=== PATIENT | male | born 1955 ===

== ENCOUNTER 2020-04-21 16:12 | Observation (INO) | payer SELFPAY ==
[~2020-04-21] VITALS: Ht 185.4 cm; Wt 74.0 kg
[~2020-04-21 16:12] MED LIST changes: -CALCITONIN SAL; -Norco 5-325 Ta1 EACH PO
[2020-04-21 18:32] LABS: BASOPHILS ABSOLUTE AUTO 0.02 K/mm3 (0.00-0.23); BASOPHILS PERCENT AUTO 0 % (0-2); EOSINOPHILS ABSOLUTE AUTO 0.03 K/mm3 (0.00-0.68); EOSINOPHILS PERCENT AUTO 0 % (0-6); Hematocrit 44.5 % (37.0-53.0); Hemoglobin 14.1 g/dL (13.5-17.5); IMMATURE GRAN ABSOLUTE AUTO 0.04 K/mm3 (0.00-0.10); IMMATURE GRAN PERCENT AUTO 0 % (0-1); LYMPHOCYTES ABSOLUTE AUTO 1.02 K/mm3 (0.84-5.20); LYMPHOCYTES PERCENT AUTO 11 % (21-46); MONOCYTES ABSOLUTE AUTO 0.46 K/mm3 (0.16-1.47); MONOCYTES PERCENT AUTO 5 % (4-13); Mean Corpuscular HGB 29.9 pg (26.0-34.0); Mean Corpuscular HGB Conc 31.7 g/dL (31.5-36.5); Mean Corpuscular Volume 95 fL (80-100); Mean Platelet Volume 8.6 fL (9.1-12.4); NEUTROPHILS ABSOLUTE AUTO 7.42 K/mm3 (1.96-9.15); NEUTROPHILS PERCENT AUTO 83 % (41-73); Platelet Count 326 K/mm3 (150-400); RDW Standard Deviation 45.6 fL (35.1-46.3); Red Blood Cell Count 4.71 M/mm3 (4.30-5.90); White Blood Cell Count 8.99 K/mm3 (4.00-11.30)
[2020-04-21 18:57] LABS: Magnesium, Blood 2.1 mg/dL (1.6-2.4)
[2020-04-21 19:00] LABS: Alanine Aminotransfer (ALT/SGP 27 U/L (12-78); Albumin, Blood 3.9 g/dL (3.4-5.0); Albumin/Globulin Ratio 1.1 (0.8-1.8); Alk Phos 143 U/L (50-136); Anion Gap 2 mmol/L (6-16); Aspartate Aminotrans (AST/SGOT 28 U/L (12-37); Bilirubin, Total 0.6 mg/dL (0.1-1.0); Blood Urea Nitrogen 11 mg/dL (8-24); Bun/Creatinine Ratio 14.6 (12.0-20.0); CO2, Blood 31 mmol/L (21-32); Calcium, Blood 13.6 mg/dL (8.5-10.1); Chloride, Blood 103 mmol/L (98-108); Creatinine, Blood 0.75 mg/dL (0.60-1.20); Globulin, Blood 3.6 g/dL (2.2-4.0); Glomerular Filtration Rate >60 (60-); Glucose, Blood 101 mg/dL (70-99); Phosphorus, Blood 2.6 mg/dL (2.5-4.9); Potassium, Blood 4.8 mmol/L (3.5-5.5); Sodium, Blood 136 mmol/L (136-145); Total Protein, Blood 7.5 g/dL (6.4-8.2)
[2020-04-21 19:05] LABS: CPK Creatine Kinase 59 U/L (39-308); Uric Acid, Blood 6.1 mg/dL (3.5-7.2)
[2020-04-21 19:14] LABS: Creatine Kinase MB <1.0 ng/mL (0.0-3.6); Creatine Kinase MB Index Unable to Calculate (0.0-4.0)
[2020-04-21 19:43] LABS: Source, Urine Clean Catch
[2020-04-21 19:48] LABS: Appearance, Urine Clear (Clear); Bilirubin, Urine Neg (Neg); Blood, Urine 1+ (Neg); Color, Urine Yellow (P-Yellow); Glucose Qualitative, Urine Neg (Neg); Ketones, Urine 2+ (Neg); Leukocyte Esterase, Urine Neg (Neg); Nitrite, Urine Neg (Neg); Protein, Urine Neg (Neg); Specific Gravity, Urine 1.025 (1.003-1.022); Urobilinogen, Urine NORM (Normal)
[2020-04-21 19:55] LABS: Bacteria Mod /hpf; Hyaline Casts 0-2 /lpf (0-2); Red Blood Cells, Urine 0-2 /hpf (0-2); Squamous Epithelial Cells Not Seen /hpf (Few); White Blood Cells, Urine 0-2 /hpf (0-5)
--- NOTE | 2020-04-21 22:39 | NUR ---
NEW ADMIT PT ARRIVED TO FLOOR VIA STRETCHER AT 2225. EDUCATED ON HOW TO USE CALL LIGHT. AUTO APPRENTICE MECHANIC CURRENTLY IN ROOM.
[2020-04-22 04:54] LABS: BASOPHILS ABSOLUTE AUTO 0.01 K/mm3 (0.00-0.23); BASOPHILS PERCENT AUTO 0 % (0-2); EOSINOPHILS ABSOLUTE AUTO 0.04 K/mm3 (0.00-0.68); EOSINOPHILS PERCENT AUTO 1 % (0-6); Hematocrit 40.3 % (37.0-53.0); Hemoglobin 12.9 g/dL (13.5-17.5); IMMATURE GRAN ABSOLUTE AUTO 0.02 K/mm3 (0.00-0.10); IMMATURE GRAN PERCENT AUTO 0 % (0-1); LYMPHOCYTES ABSOLUTE AUTO 0.89 K/mm3 (0.84-5.20); LYMPHOCYTES PERCENT AUTO 11 % (21-46); MONOCYTES ABSOLUTE AUTO 0.71 K/mm3 (0.16-1.47); MONOCYTES PERCENT AUTO 9 % (4-13); Mean Corpuscular HGB 30.2 pg (26.0-34.0); Mean Corpuscular Volume 94 fL (80-100); Mean Platelet Volume 8.9 fL (9.1-12.4); NEUTROPHILS ABSOLUTE AUTO 6.26 K/mm3 (1.96-9.15); NEUTROPHILS PERCENT AUTO 79 % (41-73); Platelet Count 295 K/mm3 (150-400); RDW Coefficient Variation 13.2 % (11.7-14.2); RDW Standard Deviation 45.5 fL (35.1-46.3); Red Blood Cell Count 4.27 M/mm3 (4.30-5.90); White Blood Cell Count 7.93 K/mm3 (4.00-11.30)
[2020-04-22 05:11] LABS: Alanine Aminotransfer (ALT/SGP 25 U/L (12-78); Albumin, Blood 3.4 g/dL (3.4-5.0); Alk Phos 131 U/L (50-136); Anion Gap 4 mmol/L (6-16); Aspartate Aminotrans (AST/SGOT 29 U/L (12-37); Bilirubin, Total 0.5 mg/dL (0.1-1.0); Blood Urea Nitrogen 10 mg/dL (8-24); Bun/Creatinine Ratio 16.4 (12.0-20.0); CO2, Blood 28 mmol/L (21-32); Calcium, Blood 11.7 mg/dL (8.5-10.1); Chloride, Blood 108 mmol/L (98-108); Creatinine, Blood 0.61 mg/dL (0.60-1.20); Globulin, Blood 3.5 g/dL (2.2-4.0); Glomerular Filtration Rate >60 (60-); Glucose, Blood 114 mg/dL (70-99); Potassium, Blood 4.3 mmol/L (3.5-5.5); Sodium, Blood 140 mmol/L (136-145); Total Protein, Blood 6.9 g/dL (6.4-8.2)
--- NOTE | 2020-04-22 05:42 | NUR ---
SHIFT SUMMARY AOX4. VSS. TELE NSR @67. ADMITTED FOR HYPERCALCEMIA & NEW DX OF PROSTATE CA c ELIJAH. DENIES N/V OR DYSPNEA. REPORTS 5-12/10 MID LOWER BACK & L HIP PAIN WHICH CAUSES INCREASED WEAKNESS. MEDICATED c 50MCG FENTANYL & STATES RELIEF. REPORTS URGENCY & FREQUENCY c URINATION. HAD ULTRASOUND OF BILAT LEGS LAST NIGHT. RECEIVED ZOMETA IN ER & 1 DOSE OF CALCITONIN TO HELP DECREASE CALCIUM LEVELS. ABLE TO AMBULATE IND, HAS STEADY GAIT. CALL LIGHT IN REACH.
[2020-04-22] MEDS ORDERED: Norco 5-325 Ta1 EACH PO (13:13)
[2020-04-22] MEDS ORDERED: CALCITONIN SAL (13:13)
--- NOTE | 2020-04-22 16:22 | NUR ---
pt eager to return home, medicated as prescribed and followed up with dc orders, provided map to [facility]inc when pt seemed confused as to location, apointment made for pcp follow up to reduced chance of neglect, iv removed with no difficulty or issue, pt escorted in wc down to parkinglot, happy and a+o as left
== END 2020-04-22 14:50 | disposition home or self-care (01) ==
LOC: ER 16:12 → MEDS 16:13
PROVIDERS: Physician Assistant; ADMIT Internal Medicine
DX: E83.52 Hypercalcemia (principal); R59.1 Generalized enlarged lymph nodes; R53.1 Weakness; N40.0 Benign prostatic hyperplasia without lower urinary tract symptoms; K21.9 Gastro-esophageal reflux disease without esophagitis; G89.29 Other chronic pain; M54.9 Dorsalgia, unspecified; K62.89 Other specified diseases of anus and rectum; R63.4 Abnormal weight loss; Z68.21 Body mass index [BMI] 21.0-21.9, adult; Z79.899 Other long term (current) drug therapy; Z87.891 Personal history of nicotine dependence; Z23 Encounter for immunization
CPT/HCPCS: 36415; 71260; 74177; 76536; 80053; 81001; 82550; 82553; 83735; 83970; 84100; 84550; 85025; 87086; 93005; 93010; 93970; 99284-25; A9270-GY; J0630; J1650; J3010; J3489; J7030; Q9967

== ENCOUNTER → 2020-04-21 | Outpatient (CLI) | payer SELFPAY ==
[~2020-04-21] MED LIST: CALCITONIN SAL; FERSU300 PO; Hair, Skin & N1 EACH PO; Norco 5-325 Ta1 EACH PO; Prilosec Otc20 MG PO
[2020-04-21 14:17] LABS: BASOPHILS ABSOLUTE AUTO 0.02 K/mm3 (0.00-0.23); BASOPHILS PERCENT AUTO 0 % (0-2); EOSINOPHILS ABSOLUTE AUTO 0.04 K/mm3 (0.00-0.68); EOSINOPHILS PERCENT AUTO 1 % (0-6); Hematocrit 43.9 % (37.0-53.0); Hemoglobin 14.3 g/dL (13.5-17.5); IMMATURE GRAN ABSOLUTE AUTO 0.03 K/mm3 (0.00-0.10); IMMATURE GRAN PERCENT AUTO 0 % (0-1); LYMPHOCYTES ABSOLUTE AUTO 0.96 K/mm3 (0.84-5.20); LYMPHOCYTES PERCENT AUTO 11 % (21-46); MONOCYTES ABSOLUTE AUTO 0.47 K/mm3 (0.16-1.47); MONOCYTES PERCENT AUTO 6 % (4-13); Mean Corpuscular HGB 30.4 pg (26.0-34.0); Mean Corpuscular HGB Conc 32.6 g/dL (31.5-36.5); Mean Corpuscular Volume 93 fL (80-100); Mean Platelet Volume 8.9 fL (9.1-12.4); NEUTROPHILS ABSOLUTE AUTO 6.87 K/mm3 (1.96-9.15); NEUTROPHILS PERCENT AUTO 82 % (41-73); Platelet Count 347 K/mm3 (150-400); RDW Coefficient Variation 13.2 % (11.7-14.2); RDW Standard Deviation 45.6 fL (35.1-46.3); White Blood Cell Count 8.39 K/mm3 (4.00-11.30)
[2020-04-21 14:45] LABS: Alanine Aminotransfer (ALT/SGP 30 U/L (12-78); Albumin, Blood 4.1 g/dL (3.4-5.0); Albumin/Globulin Ratio 1.1 (0.8-1.8); Alk Phos 151 U/L (40-126); Anion Gap 4 mmol/L (6-16); Aspartate Aminotrans (AST/SGOT 33 U/L (12-37); Bilirubin, Total 0.5 mg/dL (0.1-1.0); Blood Urea Nitrogen 12 mg/dL (8-24); Bun/Creatinine Ratio 14.6 (12.0-20.0); CO2, Blood 31 mmol/L (21-32); Chloride, Blood 99 mmol/L (98-108); Creatinine, Blood 0.82 mg/dL (0.60-1.20); Globulin, Blood 3.9 g/dL (2.2-4.0); Glomerular Filtration Rate >60 (60-); Glucose, Blood 110 mg/dL (70-99); Potassium, Blood 5.3 mmol/L (3.5-5.5); Sodium, Blood 134 mmol/L (136-145)
[2020-04-21 14:46] LABS: Calcium, Blood 14.1 mg/dL (8.5-10.1)
[2020-04-21 15:40] LABS: PSA, %Free 11.5 %
== END | disposition home or self-care (01) ==
LOC: LAB SHORT 14:09 → LAB EV 14:09
PROVIDERS: Chiropractor
DX: N40.0 Benign prostatic hyperplasia without lower urinary tract symptoms (principal); R03.0 Elevated blood-pressure reading, without diagnosis of hypertension
CPT/HCPCS: 80053; 84153; 84154; 85025

== ENCOUNTER 2020-11-10 12:17 | Emergency (ER) | payer OTHER ==
[~2020-11-10] VITALS: Ht 188 cm; Wt 90.7 kg
[~2020-11-10 12:17] MED LIST changes: +Norco 5-325 Ta1 EACH PO
[2020-11-10 13:53] LABS: BASOPHILS ABSOLUTE AUTO 0.02 K/mm3 (0.00-0.23); BASOPHILS PERCENT AUTO 0 % (0-2); EOSINOPHILS PERCENT AUTO 0 % (0-6); Hematocrit 37.1 % (37.0-53.0); Hemoglobin 12.2 g/dL (13.5-17.5); IMMATURE GRAN ABSOLUTE AUTO 0.17 K/mm3 (0.00-0.10); IMMATURE GRAN PERCENT AUTO 1 % (0-1); LYMPHOCYTES ABSOLUTE AUTO 0.66 K/mm3 (0.84-5.20); LYMPHOCYTES PERCENT AUTO 5 % (21-46); MONOCYTES ABSOLUTE AUTO 0.81 K/mm3 (0.16-1.47); MONOCYTES PERCENT AUTO 6 % (4-13); Mean Corpuscular HGB 32.7 pg (26.0-34.0); Mean Corpuscular HGB Conc 32.9 g/dL (31.5-36.5); Mean Corpuscular Volume 100 fL (80-100); Mean Platelet Volume 8.1 fL (9.1-12.4); NEUTROPHILS PERCENT AUTO 87 % (41-73); Platelet Count 214 K/mm3 (150-400); RDW Standard Deviation 47.9 fL (35.1-46.3); Red Blood Cell Count 3.73 M/mm3 (4.30-5.90); White Blood Cell Count 12.56 K/mm3 (4.00-11.30)
[2020-11-10 14:14] LABS: Alanine Aminotransfer (ALT/SGP 26 U/L (12-78); Albumin, Blood 2.6 g/dL (3.4-5.0); Albumin/Globulin Ratio 0.7 (0.8-1.8); Alk Phos 100 U/L (50-136); Anion Gap 2 mmol/L (6-16); Aspartate Aminotrans (AST/SGOT 16 U/L (12-37); Bilirubin, Total 0.6 mg/dL (0.1-1.0); Blood Urea Nitrogen 15 mg/dL (8-24); Bun/Creatinine Ratio 25.5 (12.0-20.0); CO2, Blood 31 mmol/L (21-32); Calcium, Blood 9.2 mg/dL (8.5-10.1); Chloride, Blood 102 mmol/L (98-108); Creatinine, Blood 0.59 mg/dL (0.60-1.20); Globulin, Blood 3.6 g/dL (2.2-4.0); Glomerular Filtration Rate >60 (60-); Glucose, Blood 91 mg/dL (70-99); Potassium, Blood 4.1 mmol/L (3.5-5.5); Sodium, Blood 135 mmol/L (136-145); Total Protein, Blood 6.2 g/dL (6.4-8.2)
[2020-11-10] MEDS ORDERED: LEVFLO500 PO (15:13)
== END 2020-11-10 17:25 | disposition home or self-care (01) ==
LOC: ER 12:17
PROVIDERS: Emergency Medicine
DX: S91.301A Unspecified open wound, right foot, initial encounter (principal); L03.115 Cellulitis of right lower limb; L98.9 Disorder of the skin and subcutaneous tissue, unspecified; G89.29 Other chronic pain; Z87.891 Personal history of nicotine dependence; Z51.5 Encounter for palliative care; C61 Malignant neoplasm of prostate; X58.XXXA Exposure to other specified factors, initial encounter
CPT/HCPCS: 36415; 72170; 73620; 80053; 83605; 85025; 87040; 87077; 87147; 87186; 96365; 96375; 99284-25; J0295; J1170; J2405

== ENCOUNTER 2020-11-23 11:47 | Inpatient (IN) | payer MEDICARE, OTHER ==
[~2020-11-23] VITALS: Ht 180.3 cm; Wt 83.2 kg
[~2020-11-23 11:47] MED LIST changes: +LEVFLO500 PO
[2020-11-23] MEDS ORDERED: CHLO25 PO (16:33)
[2020-11-23] MEDS ORDERED: DEXA4 PO (17:35)
[2020-11-23] MEDS ORDERED: METHADONE HCL10 M3 PO (17:36)
[2020-11-23] MEDS ORDERED: Ativan1 MG SL (17:36)
[2020-11-23] MEDS ORDERED: FUROSEMIDE40 MG PO (17:37)
[2020-11-23 18:36] LABS: BASOPHILS ABSOLUTE AUTO 0.03 K/mm3 (0.00-0.23); BASOPHILS PERCENT AUTO 0 % (0-2); EOSINOPHILS ABSOLUTE AUTO 0.01 K/mm3 (0.00-0.68); EOSINOPHILS PERCENT AUTO 0 % (0-6); Hemoglobin 13.4 g/dL (13.5-17.5); IMMATURE GRAN ABSOLUTE AUTO 0.18 K/mm3 (0.00-0.10); IMMATURE GRAN PERCENT AUTO 2 % (0-1); LYMPHOCYTES ABSOLUTE AUTO 0.99 K/mm3 (0.84-5.20); LYMPHOCYTES PERCENT AUTO 8 % (21-46); MONOCYTES ABSOLUTE AUTO 0.66 K/mm3 (0.16-1.47); MONOCYTES PERCENT AUTO 6 % (4-13); Mean Corpuscular HGB 32.5 pg (26.0-34.0); Mean Corpuscular HGB Conc 32.7 g/dL (31.5-36.5); Mean Corpuscular Volume 100 fL (80-100); Mean Platelet Volume 8.4 fL (9.1-12.4); NEUTROPHILS ABSOLUTE AUTO 9.92 K/mm3 (1.96-9.15); NEUTROPHILS PERCENT AUTO 84 % (41-73); Platelet Count 239 K/mm3 (150-400); RDW Coefficient Variation 12.9 % (11.7-14.2); RDW Standard Deviation 47.1 fL (35.1-46.3); Red Blood Cell Count 4.12 M/mm3 (4.30-5.90); White Blood Cell Count 11.79 K/mm3 (4.00-11.30)
[2020-11-23 19:00] LABS: Alanine Aminotransfer (ALT/SGP 31 U/L (12-78); Alk Phos 111 U/L (50-136); Anion Gap 5 mmol/L (6-16); Aspartate Aminotrans (AST/SGOT 28 U/L (12-37); Bilirubin, Total 0.8 mg/dL (0.1-1.0); Blood Urea Nitrogen 30 mg/dL (8-24); Bun/Creatinine Ratio 34.3 (12.0-20.0); CO2, Blood 30 mmol/L (21-32); Calcium, Blood 9.7 mg/dL (8.5-10.1); Chloride, Blood 107 mmol/L (98-108); Creatinine, Blood 0.88 mg/dL (0.60-1.20); Globulin, Blood 3.1 g/dL (2.2-4.0); Glomerular Filtration Rate >60 (60-); Glucose, Blood 74 mg/dL (70-99); Potassium, Blood 3.3 mmol/L (3.5-5.5); Sodium, Blood 142 mmol/L (136-145); Total Protein, Blood 6.1 g/dL (6.4-8.2)
[2020-11-23] MEDS ORDERED: METH10 PO (20:32)
[2020-11-23] MEDS ORDERED: ROXICODONE15 MG PO (20:33)
[2020-11-23] MEDS ORDERED: CALCITONIN SAL (20:43)
[2020-11-23] MEDS ORDERED: HYOSCYAMINE0.125 MG SL (20:45)
[2020-11-23] MEDS ORDERED: ACET500 PO (20:46)
[2020-11-23] MEDS ORDERED: TAMS.4ER PO (20:47)
[2020-11-23] MEDS ORDERED: DOCUZEN 8.6-501 EACH PO (20:48)
[2020-11-23] MEDS ORDERED: POTA10T PO (20:48)
[2020-11-23] MEDS ORDERED: MORP20L SL (20:49)
[2020-11-23] MEDS ORDERED: BISA10S PR (20:50)
--- NOTE | 2020-11-23 21:42 | NUR ---
ADMISSION: PATIENT IS RECIEVED FROM ER, DAUGHTER AT BEDSIDE TO ASSIST WITH ADMISSION QUESTIONS. P[ATIENT IS CONFUSED AND UNCOOPERATIVE. SCORING AN 11 ON CIWA SCALE. IV ZOFRAN AND ATIVAN ARE GIVEN, PATIENT REFUSED ORAL LIBRIUM AND FLUIDS. DAUGHTER AND PATIENT ARE ORIENTED TO ROOM AND CALL BOWEN. BED ALARM IS ON FOR SAFETY.
--- NOTE | 2020-11-24 02:41 | NUR ---
CIWA: PATIENT HAD GOOD EFFECT FROM ATIVAN GIVEN @ 2110. SLEEPING WITH EASY REPIRATIONS AT 16. @2312 CIWA SCORE IS 11. PATIENT IS CONFUSED, FOLLOWS DIRECTION WITH MULTIPLE CUES. @ 0000 CIWA SCORE IS ZERO.
--- NOTE | 2020-11-24 07:54 | NUR ---
THIS NURSE RECIEVED REPORT FROM JESSY WALKER AT SHIFT CHANGE. PT WAS AGGITATED, CONFUSED AND NON-REDIRECTABLE. PT INSISTED ON GETTING OOB BUT WAS NOT ABLE TO STAND WITH MAX ASSISTANCE. ODESSA PLACED ON PATIENT AND ORDER RECIEVED FROM DR. JERONIMO. DAUGHTER AIDE NOTIFIED AT 0750 AND SHE STATES THAT SHE WANT'S HER FATHER PLACED ON COMFORT CARE. THIS NURSE LEFT MESSAGE WITH PALLIATIVE CARE. WILL ALSO NOTIFY DR. LIMA WELL.
--- NOTE | 2020-11-24 09:58 | NUR ---
pt resting on jose due to aggitation call place to family and [facility]. needs placement
--- NOTE | 2020-11-24 13:21 | NUR ---
Meeting with patient his family and physician for plan of care. pt ahs been labile with his medication management. he tries to participate inconverstion but only able to say no and afew intermitant words. Pt very deconditioned and legs very painfull. catheter placed and over 400 of dark laura urine. Review of medications with [facility] and physician for carefule safe equigesic dosing. Will stop stu morphine as his site is functional but tender and start home regime. fentayl patch placed to give consitant dosing and reduce withdrawls. Sound like possbile at home taking to much or not enough. Review with nursing doisng of roxinol and ativan and hopfully decrease phonbarb and transition home tomorrow or next day. theraputic conversation with sandra on caregiver stress and self care. Brief review of medications and dosing and route. Had slow conversation with patient on acceptance of care and withdrawls. Unsufe he was able to take it in. Will monitor for non verbal cues of pain and withdrawl and adjust medications to evolving symptoms.
--- NOTE | 2020-11-24 15:50 | NUR ---
ADMIT: 11/23/20 DISCHARGE: DX: Alcohol withdrawal CC: kwilcox JOSÉ MANUEL CALL: RESIDENCE: home CAREGIVER: self DX: Prostate CA, chronic pain due to malignant disease, see list DME: none CCM: none HOME HEALTH: Hospice with [facility] SUMMARY: Admit: 11/23/20 11/24/20- per chart review with Dr. Buckner, pt is going to need placement. Daughter drives back and forth from her home and when she is not here, she tries to find other people to cover for her. Palliative care has put a comfort care order in on the pt. Spoke with Rebecca at palliative care about placement. Informed her that according to [facility] rules, pt will have to have CIWA of 0 for 72 hrs prior to be placed. Rebecca shared that pt is heavily medicated and no longer having behaviors. She was going to reach out to [facility] to help find placement for the pt. She also is wondering if we could potentially find placement closer to his daughter. This is an option, will need to find out where this is. Daughter Kymberly Hicks, called and requested a call from Dr. Buckner, . Provided with daughter's information. -travis
--- NOTE | 2020-11-24 17:31 | NUR ---
SHIFT SUMMARY PT AXO TO SELF AT TIMES, DOES NOT ANSWER QUESTIONS APPROPRIATELY AND YELLS AND CURSES AT STAFF. PT TRANSITIONED TO COMFORT CARE THIS SHIFT. PT MEDICATED FOR PAIN, ETOH WITHDRAWL AND ANXIETY PER EMAR. CIWA'S DIFFICULT TO ASSESS THIS SHIFT R/T PATIENT SLEEPING AT TIMES OR NOT ABLE TO ANSWER QUESTIONS APPROPRIATELY. NEW IV PLACED IN LEFT FOREARM AND PROTECTED. GOTTLIEB PLACED THIS SHIFT, PATENT AND DRAINING CORTEZ URINE. DAUGHTER UPDATED ON PATIENT THROUGHOUT THE SHIFT. SEE PALLIATIVE CARE ASSESSMENT. ORAL CARE ATTEMPTED AT PATIENT REQUEST THOUGH PT COMBATIVE ONCE ORAL CARE WAS INITIATED. BED IN LOW POSITION, CALL LIGHT WITHIN REACH. BED ALARM ON.
--- NOTE | 2020-11-24 18:00 | NUR ---
Spiritual care note: Mr. Campos was sleeping peacefully when I visited. No family present. He appeared comfortable and well cared-for.I will remain available to pt and family.
--- NOTE | 2020-11-24 18:30 | NUR ---
PT GAVE THIS STUDENT NURSE PERMISSION TO PROVIDE CARE ON 11/24/20.
--- NOTE | 2020-11-25 05:07 | NUR ---
SHIFT SUMMARY PT ON COMFORT CARE;AGITATED&COMBATVE AT THE BEGINNING OF SHIFT. MEDICATED PER AUG FOR PAIN&ANXIETY T/O THE NIGHT. PT RESTED COMFORTABLY FROM 1999 TO PRESENT. BED IN LOWEST POSITION W/BED ALARM ON. PROVIDED ORAL CARE&REPOSITIONING PRN. WILL CONTINUE TO MONITOR.
--- NOTE | 2020-11-25 09:53 | NUR ---
Comfort Care Visit Pt resting in bed with his eyes closed upon arrival. This RN accompanied by clinical nursing assistant Omar. Pt appears comfortable with no S/S of distress at this time. This RN did not disturb Pt at this time. Spoke with Bedside RN Shawna and discussed case. Shawna reports Ativan has been beneficial in managing symptoms. No concerns reported at this time. Palliative Care will remain available.
--- NOTE | 2020-11-25 11:14 | NUR ---
GAVE A BATH / SHAMPOO TODAY
--- NOTE | 2020-11-25 16:40 | NUR ---
Update 11/25/20: Per chart review and subsequent discussion with Dr. Buckner family is requesting hospice services. Pt. will remain hospitalized at this time. He is no longer eating or drinking. He also still receiving IV medications. Will contact hospice to find out if there is anything additionally that they need from our team.
--- NOTE | 2020-11-25 17:24 | NUR ---
PT HAS BEEN KEEP VERY COMFORTABLE TODAY. PT TREATED PER EMAR. PT TURNED Q2 HRS AND WILL MOAN A BIT, BUT THEN GOES BACK TO SLEEPING. FAMILY HAS COME TO VISIT. BED ALARM IN PLACE AND THREE RAILS UP GOTTLIEB DRAINING. WILL CONTINUE TO MONITOR.
--- NOTE | 2020-11-25 18:38 | NUR ---
PT GAVE THIS STUDENT NURSE PERMISSION TO PROVIDE CARE ON 11/25/20.
--- NOTE | 2020-11-25 19:31 | NUR ---
LATE ENTRY 11/25/20 7169 I AGREE WITH THE CHARTING AND ASSESSMENTS OF KELTON GARCIA
--- NOTE | 2020-11-26 04:44 | NUR ---
SHIFT SUMMARY PT WAS AGITATED ON&OFF T/O THE NIGHT. MEDICATED PER MAR FOR PAIN & ANXIETY. PT REPOSTIONED & ORAL CARE PROVIDED. BED IN LOWEST POSITION. WILL CONTINUE TO MONITOR UNTIL DAY RN IS GIVEN REPORT.
--- NOTE | 2020-11-26 07:44 | NUR ---
PT MOANING OUTLOUD, WAS MEDICATED FOR PAIN AND ANXIETY, PT IS RESTLESS
--- NOTE | 2020-11-26 08:58 | NUR ---
MEDICATED THE PT FOR PAIN AND ANXIETY, PT OPENS HIS EYES WITH VERBAL STIMULI BUT DOES NOT RESPOND VERBALY
--- NOTE | 2020-11-26 10:11 | NUR ---
PT APPEARS TO BE RESTING COMFORTABLY AT THIS TIME
--- NOTE | 2020-11-26 11:06 | NUR ---
PT APPEARS TO BE COMFORTABLE AT THIS TIME, FAMILY IS AT THE BEDSDIE AT THIS TIME
--- NOTE | 2020-11-26 11:57 | NUR ---
PT REPOSTIONED, STARTING MOANING IN PAIN, MEDICATED THE PT WITH ATIVAN IV AND ROXINOL, FAMILY IS AT THE BEDSIDE, WILL CONTINUE TO MONITOR AND ASSESS FOR NEEDS
--- NOTE | 2020-11-26 14:55 | NUR ---
Comfort care visit Went to check in on Fuentes this afternoon. He did not awaken when I first entered his room. He appears restless and moans. He sleeps with his mouth open and it appears dry. Nursing reports pt is resistant to oral care. He awakened when I removed the covers from his feet to assess his LE skin. He opened his eyes, but gives no verbal response other than moaning. Meds reviewed and update rec'd from nursing. Spoke with Dr. Tellez and new orders placed in EMR. Updated nursing.
--- NOTE | 2020-11-26 15:53 | NUR ---
PT CONTINUES TO MOAN AND THRASH, PT MEDICATED FOR PAIN AND ANXIETY, FAMILY IS AT THE BEDSIDE, ATTEMPTS WERE MADE TO PERFORM MOUTH CARE BUT THE PT IS NOT ALLOWING THIS AT THIS TIME, WILL CONTINUE TO MONITOR AND ASSESS FOR CHANGES
--- NOTE | 2020-11-26 15:55 | NUR ---
PT CONTINUES TO THRASH AND SHIMA, FAMILY IS AT THE BEDSIDE, GAVE IV MORPHINE AND ATIVAN, WILL CONTINUE TO MONITOR AND ASSESS FOR CHANGES
--- NOTE | 2020-11-26 17:03 | NUR ---
PT AT THIS TIME APPEARS TO BE RESTING COMFORTABLY ON HIS RIGHT SIDE, FAMILY IS AT THE BEDSIDE
--- NOTE | 2020-11-26 17:37 | NUR ---
Spiritual care note: Fuentes was restless and moaning when I saw heriberto this morning. He opens eyes to touch, but does ot otherwise respond. Asked palliative care to evaluate medication regime. Dormitory Keeper services will remain available.
--- NOTE | 2020-11-26 18:19 | NUR ---
PT MOANING AND THRASHING AGAIN, MEDICATED WITH ATIVAN AND MORPHINE IV, PT APPEARS MORE COMFORTABLE, FAMILY HAS LEFT, WILL CONTINUE TO MONITOR AND ASSESS FOR CHANGES
== END 2020-11-27 01:55 | DRG 896 ==
LOC: ER 11:47 → MEDS 17:56
PROVIDERS: ADMIT Internal Medicine
PROC: HZ2ZZZZ Detoxification Services for Substance Abuse Treatment (ICD-10-PCS; principal; 2020-11-23)
DX: F10.131 Alcohol abuse with withdrawal delirium (principal); G92 Toxic encephalopathy; C79.51 Secondary malignant neoplasm of bone; Z51.5 Encounter for palliative care; Z66 Do not resuscitate; Z86.16 Personal history of COVID-19; C61 Malignant neoplasm of prostate; Z79.899 Other long term (current) drug therapy
CPT/HCPCS: 36415; 80053; 85025; 94762; 96372-59; 99285-25; A9270; J2060; J2270; J2405; J2560